=== PATIENT | male | born 1985 | race Caucasian/White ===

== ENCOUNTER 2018-03-10 04:25 | Emergency (ER) | payer BC ==
[~2018-03-10] VITALS: Ht 177.8 cm; Wt 107.2 kg
[2018-03-10] MEDS ORDERED: ONDANSETRON 2MG/ML, 2ML IVPush ONE (05:00)
[2018-03-10] MEDS ORDERED: HYDROmorphone 2 MG/ML, 1ML IVPush PRN (05:00)
[2018-03-10] MEDS ORDERED: SODIUM CHLORIDE FLUSH 10ML SYR IVF ONE (05:00)
[2018-03-10] MEDS ORDERED: KETOROLAC 30 MG/1 ML IVPush ONE (05:00)
[2018-03-10] MEDS ORDERED: ONDANSETRON 2MG/ML, 2ML ONE (05:01)
[2018-03-10] MEDS ORDERED: HYDROmorphone 2 MG/ML, 1ML ONE (05:02)
[2018-03-10] MEDS ORDERED: KETOROLAC 30 MG/1 ML ONE (05:02)
[2018-03-10 05:24] LABS: MICROSCOPIC AUTO
[2018-03-10 05:29] VITALS: BP 123/83
[2018-03-10 05:34] LABS: BASOPHILS # (AUTO) 0.03 x10^3/uL (0-0.1); BASOPHILS % (AUTO) 1 % (0-1); EOSINOPHILS # (AUTO) 0.22 x10^3/uL (0-0.4); EOSINOPHILS % (AUTO) 4 % (1-7); LYMPHOCYTES # (AUTO) 1.32 x10^3/uL (1-3.4); LYMPHOCYTES % (AUTO) 23 % (22-44); MD NO; MEAN CORPUSCULAR HGB CONC 34.1 g/dL (33.2-36.2); MEAN CORPUSCULAR VOLUME 90.8 fL (81-97); MEAN PLATELET VOLUME 8.7 fL (7.4-10.4); MONOCYTES % (AUTO) 9 % (2-9); NEUTROPHILS # (AUTO) 3.58 x10^3/uL (1.8-6.8); NEUTROPHILS % (AUTO) 63 % (42-75); PLATELET COUNT 195 x10^3/uL (130-400); RED CELL DISTRIBUTION WIDTH 12.8 % (9.4-14.8)
[2018-03-10 05:38] LABS: ALANINE AMINOTRANSFERASE 36 U/L (12-78); ANION GAP 9 mmol/L (5-15); CALCIUM 8.7 mg/dL (8.5-10.1); CHLORIDE 109 mmol/L (98-107); CREATININE 1.21 mg/dL (0.7-1.3)
[2018-03-10 05:40] LABS: CULTURE INDICATED? NO
[2018-03-10 05:40] LABS: ALKALINE PHOSPHATASE 78 U/L (45-117); BILIRUBIN,TOTAL 1.6 mg/dL (0.2-1.0); TOTAL PROTEIN 7.7 g/dL (6.4-8.2)
[2018-03-10] MEDS ORDERED: HYDROcodone/APAP 5/325 TABLET ONE (05:54)
[2018-03-10] MEDS ORDERED: HYDROcodone/APAP 5/325 TABLET PO ONE (06:00)
== END 2018-03-10 06:09 | disposition home or self-care (01) ==
LOC: ED 06:03
DX: N20.1 Calculus of ureter (principal); Z90.49 Acquired absence of other specified parts of digestive tract
CPT/HCPCS: 36415; 74176; 80053; 81001; 83690; 85025; 93005; 96374; 96375; 99284; J1170; J1885; J2405